=== PATIENT | female | born 1975 | race Two or more races ===

== ENCOUNTER 2019-01-07 18:38 | Emergency (ER) | payer OTHER ==
[~2019-01-07] VITALS: Ht 170.2 cm; Wt 85.3 kg
[~2019-01-07 18:38] MED LIST: GILTUSS TR TAB1 EACH PO; ZITHROMAX500 MG PO
== END 2019-01-07 19:48 | disposition home or self-care (01) ==
LOC: ER 18:38
DX: T78.49XA Other allergy, initial encounter (principal); R21 Rash and other nonspecific skin eruption

== ENCOUNTER 2025-04-25 07:29 | Emergency (ER) | payer OTHER ==
[~2025-04-25] VITALS: Ht 170.2 cm; Wt 69.4 kg
[2025-04-25] MEDS ORDERED: MOUNJARO12.5 MG/0. SQ (07:47)
[2025-04-25] MEDS ORDERED: PREDNISONE10 M2 PO (07:47)
[2025-04-25] MEDS ORDERED: KETOROLAC TROMETHAMINE 60 MG VIAL IM ONE ×2 (08:30→08:48)
== END 2025-04-25 09:52 | disposition home or self-care (01) ==
LOC: ER 07:29
DX: M62.830 Muscle spasm of back (principal)

== ENCOUNTER 2025-04-25 09:10 | Outpatient (CLI) | payer OTHER ==
[~2025-04-25 09:10] MED LIST changes: +MOUNJARO12.5 MG/0. SQ; +PREDNISONE10 M2 PO
== END 2025-04-26 10:30 | disposition home or self-care (01) ==
LOC: SONOGRAMA 09:10
PROVIDERS: ATTEND General Practice
DX: M62.830 Muscle spasm of back (principal); M54.50 Low back pain, unspecified

== ENCOUNTER 2025-05-02 15:45 | Emergency (ER) | payer OTHER ==
[~2025-05-02] VITALS: Ht 170.2 cm; Wt 68.5 kg
[2025-05-02 16:30] VITALS: BP 110/64; O2SAT 100
[2025-05-02] MEDS ORDERED: ACETAMINOPHEN 500 MG GEL..CAP PO ONE (19:45)
[2025-05-02 20:14] LABS: BASO % 0.6 % (0.1-1.2); EOS # 0.02 (0.04-0.54); EOS % 0.4 % (0.7-7.0); LYMPH # 0.36 (1.18-3.74); LYMPH % 7.0 % (19.3-53.1); MEAN PLATELET VOLUME 9.80 fl (9.4-12.4); MONO # 0.63 (0.24-0.82); NEUT # 4.06 (1.56-6.13); NEUT % 79.5 % (34.0-71.1); RED CELL DISTRIBUTION WIDTH 12.8 % (11.6-14.4)
[2025-05-02 20:21] LABS: MONO % 12.3 % (4.7-12.5)
[2025-05-02 20:40] LABS: URINE APPEARANCE Clear; URINE BILIRRUBIN Negative (NEGATIVE); URINE BLOOD Negative; URINE COLOR Yellow; URINE GLUCOSE Negative (NEGATIVE); URINE KETONE Negative (NEGATIVE); URINE LEUKOCYTE Negative; URINE NITRATE Negative; URINE PROTEIN Negative (NEGATIVE); URINE UROBILINOGEN 0.2 E.U./dl
[2025-05-02 20:46] LABS: URINE BACTERIA 950.1 uL (0.0-1933); URINE EPITHELIAL CELLS 23.3 uL (0.0-38.8); URINE RBC 2.4 uL (0.0-20.8); URINE WBC 2.6 uL (0.0-23.2)
[2025-05-02 20:47] LABS: ALT/SGPT 24.0 U/L (12-78); AST/SGOT 17.0 U/L (15-37); BILIRUBIN TOTAL 0.36 mg/dL (0.3-1.2); BUN CREA RATIO 17.0 (7.0-25.0); CREATININE SERUM 0.83 mg/dL (0.55-1.02); GFR 73.37; GLOBULINA 3.1 G/DL (2.4-3.5); GLUCOSE FASTING 113.0 mg/dL (65-100); OSMOLALITY SERUM 279.0 MOSM/KG (275-295)
[2025-05-02 20:48] LABS: COVID-19 AG POSITIVE (NEGATIVE)
[2025-05-02 20:50] LABS: URINE CAST 0.00 uL (0.0-1.40)
[2025-05-02] MEDS ORDERED: ORPHENADRINE CITRATE 30 MG/ML AMPUL IM ONE (21:30)
[2025-05-02] MEDS ORDERED: TUSSIN DM LIQU118 ML PO (21:35)
== END 2025-05-02 22:00 | disposition home or self-care (01) ==
LOC: ER 15:45
PROVIDERS: Emergency Medicine
DX: U07.1 COVID-19 (principal); R50.9 Fever, unspecified

== ENCOUNTER 2025-05-05 08:51 | Emergency (ER) | payer OTHER ==
[~2025-05-05] VITALS: Ht 170.2 cm; Wt 68.0 kg
[~2025-05-05 08:51] MED LIST changes: +TUSSIN DM LIQU118 ML PO
[2025-05-05 09:37] LABS: BASO % 0.8 % (0.1-1.2); EOS # 0.04 (0.04-0.54); EOS % 0.8 % (0.7-7.0); LYMPH # 2.00 (1.18-3.74); LYMPH % 41.3 % (19.3-53.1); MEAN PLATELET VOLUME 10.40 fl (9.4-12.4); MONO # 0.33 (0.24-0.82); MONO % 6.8 % (4.7-12.5); NEUT # 2.42 (1.56-6.13); NEUT % 50.1 % (34.0-71.1); RED CELL DISTRIBUTION WIDTH 13.1 % (11.6-14.4)
[2025-05-05 12:08] LABS: URINE APPEARANCE Cloudy; URINE BILIRRUBIN Negative (NEGATIVE); URINE BLOOD Negative; URINE COLOR Yellow; URINE GLUCOSE Negative (NEGATIVE); URINE KETONE Trace (NEGATIVE); URINE LEUKOCYTE Trace; URINE NITRATE Negative; URINE PROTEIN Negative (NEGATIVE); URINE UROBILINOGEN 0.2 E.U./dl
[2025-05-05 12:12] LABS: URINE BACTERIA 2902.6 uL (0.0-1933); URINE EPITHELIAL CELLS 113.2 uL (0.0-38.8); URINE RBC 5.1 uL (0.0-20.8); URINE WBC 23.6 uL (0.0-23.2)
[2025-05-05 12:17] LABS: URINE CAST 0.87 uL (0.0-1.40)
[2025-05-05] MEDS ORDERED: KETOROLAC TROMETHAMINE 60 MG VIAL IM ONE (18:00)
[2025-05-05] MEDS ORDERED: TRIAMCINOLONE ACETONIDE 40 MG/ML VIAL IM ONE (18:00)
[2025-05-05] MEDS ORDERED: DICLOFENAC SODI75 MG PO (18:03)
== END 2025-05-05 18:46 | disposition home or self-care (01) ==
LOC: ER 08:51
PROVIDERS: Emergency Medicine
DX: M51.26 Other intervertebral disc displacement, lumbar region (principal); R10.9 Unspecified abdominal pain
CPT/HCPCS: 36415; 72131; 74177; Q9965

== ENCOUNTER 2025-07-12 12:26 | Emergency (ER) | payer OTHER ==
[~2025-07-12] VITALS: Ht 170.2 cm; Wt 68.0 kg
[~2025-07-12 12:26] MED LIST changes: +DICLOFENAC SODI75 MG PO
[2025-07-12 12:40] VITALS: BP 103/64; O2SAT 100
[2025-07-12] MEDS ORDERED: CEFTRIAXONE SODIUM 2,000 MG VIAL IV STA (12:53)
[2025-07-12] MEDS ORDERED: CEFTRIAXONE SODIUM 1,000 MG VIAL ONE (13:58)
[2025-07-12] MEDS ORDERED: CEFTRIAXONE SODIUM 1,000 MG VIAL IM STA (14:05)
== END 2025-07-12 14:21 | disposition home or self-care (01) ==
LOC: ER 12:26
DX: T24.101A Burn of first degree of unspecified site of right lower limb, except ankle and foot, initial encounter (principal); X10.0XXA Contact with hot drinks, initial encounter; Y93.89 Activity, other specified; Y92.89 Other specified places as the place of occurrence of the external cause; Y99.9 Unspecified external cause status